=== PATIENT | female | born 1960 | race Caucasian/White ===

== ENCOUNTER 2019-03-28 10:23 | Emergency (ER) | payer MEDICAID ==
--- NOTE | 2019-03-28 10:29 | NUR ---
CALLED PT TO TRIAGE AND SHE STATED SHE HAD TO LEAVE BUT WILL BE BACK AT A LATER TIME.
== END 2019-03-28 10:29 | disposition left against medical advice (07) ==
LOC: MED 10:23
DX: F41.9 Anxiety disorder, unspecified (principal); Z53.21 Procedure and treatment not carried out due to patient leaving prior to being seen by health care provider

== ENCOUNTER 2019-03-28 10:43 | Emergency (ER) | payer MEDICAID ==
[~2019-03-28] VITALS: Ht 160 cm; Wt 44.0 kg
[2019-03-28 10:57] VITALS: BP 116/77
[2019-03-28] MEDS ORDERED: LORazepam 0.5 MG TAB PO ONE (11:20)
[2019-03-28] MEDS ORDERED: hydrOXYzine HCL 25 MG TAB PO ONE (11:30)
[2019-03-28 12:28] VITALS: BP 116/70
== END 2019-03-28 12:28 | disposition home or self-care (01) ==
LOC: MED 10:43
DX: F41.9 Anxiety disorder, unspecified (principal); F32.9 Major depressive disorder, single episode, unspecified
CPT/HCPCS: 99284

== ENCOUNTER 2020-05-06 12:56 | Emergency (ER) | payer MEDICAID ==
[~2020-05-06] VITALS: Ht 157.5 cm; Wt 49.9 kg
[2020-05-06 13:05] VITALS: BP 134/89
--- NOTE | 2020-05-06 13:51 | NUR ---
PATIENT AMBULATED TO ER BED 12
--- NOTE | 2020-05-06 13:55 | NUR ---
c/o anxiety----sudden onset of dizziness, weakness to knees x today pt admits she feels this way everyday---denies si/hi or visual/auditory hallucinations
--- NOTE | 2020-05-06 13:55 | NUR ---
Note marioone in EDM - 05/06/20 at 1444 by ADRIEL Patient discharged with v/s stable. Written and verbal after care instructions given and explained. Patient alert, oriented and verbalized understanding of instructions. Ambulatory with steady gait. All questions addressed prior to discharge. ID band removed. Patient advised to follow up with PMD. Rx of XANAX given. Patient educated on indication of medication including possible reaction and side effects. Opportunity to ask questions provided and answered.
[2020-05-06 14:44] VITALS: BP 129/84
== END 2020-05-06 14:44 | disposition home or self-care (01) ==
LOC: MED 12:56
DX: R42 Dizziness and giddiness (principal); F41.9 Anxiety disorder, unspecified; F32.9 Major depressive disorder, single episode, unspecified
CPT/HCPCS: 99283

== ENCOUNTER 2020-08-10 10:25 | Emergency (ER) | payer MEDICAID ==
[~2020-08-10] VITALS: Ht 160 cm; Wt 49.0 kg
[2020-08-10 10:42] VITALS: BP 115/61
--- NOTE | 2020-08-10 11:48 | NUR ---
PT TAKEN TO BED 8.
--- NOTE | 2020-08-10 12:15 | NUR ---
60 YO F C/O RECTAL BLEEDING X 2 DAYS. PT ALSO REPORTS LOWER ABDOMINAL CRAMPING /10. DENIES N/V/D. NO URINARY SYMPTOMS REPORTED. IN ED, VSS. AOX4. CLEAR BREATH SOUNDS. ABDOMEN SOFT NONTENDER, ACTIVE BOWEL SOUNDS ON ALL QUADRANTS. PT SITTING ON BED. ERMD MADE AWARE OF PT STATUS. PMH: DEPRESSION, ANXIETY, PANIC DO NKA
[2020-08-10 12:50] VITALS: BP 115/61
--- NOTE | 2020-08-10 12:50 | NUR ---
Patient discharged with v/s stable. Written and verbal after care instructions given and explained. Patient alert, oriented and verbalized understanding of instructions. Ambulatory with steady gait. All questions addressed prior to discharge. ID band removed. Patient advised to follow up with PMD. Rx of Hydrocortisone Acetate, Ranitidine given. Patient educated on indication of medication including possible reaction and side effects. Opportunity to ask questions provided and answered.
== END 2020-08-10 12:50 | disposition home or self-care (01) ==
LOC: MED 10:25
DX: K64.8 Other hemorrhoids (principal); F41.9 Anxiety disorder, unspecified; F32.9 Major depressive disorder, single episode, unspecified
CPT/HCPCS: 99282

== ENCOUNTER 2022-03-10 14:57 | Emergency (ER) | payer MEDICAID ==
[~2022-03-10] VITALS: Ht 160 cm; Wt 59.4 kg
[2022-03-10 15:22] VITALS: BP 118/73
[2022-03-10] MEDS ORDERED: FAMOTIDINE 20 MG TAB PO ONE (16:10)
[2022-03-10] MEDS ORDERED: DICYCLOMINE HCL LIQUID 20 MG, ALUMINUM HYD/MAG/SIMETHICONE 30 ML, LIDOCAINE VISCOUS 2% ... PO ONE ×3 (16:10)
[2022-03-10 16:39] LABS: BASOPHILS % (AUTO) 0.1 % (0.0-2.0); EOSINOPHILS % (AUTO) 0.2 % (0.0-4.0); LYMPHOCYTES # (AUTO) 1.7 K/uL (2.5-16.5); LYMPHOCYTES % (AUTO) 15.8 % (20.5-51.1); MEAN CORPUSCULAR HEMOGLOBIN 32 pg (27-31); MEAN CORPUSCULAR HGB CONC 33 g/dL (33-37); MEAN CORPUSCULAR VOLUME 95.7 fL (80-94); MONOCYTES # (AUTO) 1.9 K/uL (0.8-1.0); MONOCYTES % (AUTO) 17.5 % (1.7-9.3); NEUTROPHILS # (AUTO) 7.2 K/uL (1.8-7.7); NEUTROPHILS % (AUTO) 66.4 % (42.2-75.2); PLATELET COUNT (AUTO) 193 K/uL (140-450); RED BLOOD CELL COUNT(AUTO) 6.26 MIL/uL (4.20-5.40); RED CELL DISTRIBUTION WIDTH 13.8 % (11.6-13.7); WHITE BLOOD COUNT (AUTO) 10.9 K/uL (4.8-10.8)
[2022-03-10 17:07] LABS: ALBUMIN 3.4 g/dL (3.4-5.0); ANION GAP 14.2 (8-16); ASPARTATE AMINOTRANSFERASE 20 U/L (15-37); CARBON DIOXIDE 26.1 mmol/L (21-32); CHLORIDE 101 mmol/L (98-107); CREATININE 0.6 mg/dL (0.6-1.3); GFR ARICAN-AMERICAN 130 mL/min (>90); GLUCOSE 118 mg/dL (74-106); LIPASE 757 U/L (73-393); POTASSIUM 3.3 mmol/L (3.5-5.1); SODIUM SERUM 138 mmol/L (136-145); TOTAL BILIRUBIN 0.5 mg/dL (0.0-1.0); UREA NITROGEN, BLOOD 17 mg/dL (7-18)
[2022-03-10] MEDS ORDERED: ALUMINUM HYD/MAG/SIMETHICONE 30 ML UDC ONE (17:14)
[2022-03-10] MEDS ORDERED: FAMOTIDINE 20 MG TAB ONE (17:14)
[2022-03-10] MEDS ORDERED: DICYCLOMINE HCL LIQUID 10 MG/5 ML UDC ONE (17:16)
[2022-03-10] MEDS ORDERED: BEN10 PO (17:42)
[2022-03-10] MEDS ORDERED: ACET-8386 PO (17:42)
[2022-03-10] MEDS ORDERED: FAMO-92 PO (17:49)
[2022-03-10 18:14] VITALS: BP 118/73
--- NOTE | 2022-03-10 18:14 | NUR ---
Patient discharged with v/s stable. Written and verbal after care instructions given and explained. Patient alert, oriented and verbalized understanding of instructions. Ambulatory with steady gait. All questions addressed prior to discharge. ID band removed. Patient advised to follow up with PMD. Rx of HYDROCODON BENTYL PEPCID given. Patient educated on indication of medication including possible reaction and side effects. Opportunity to ask questions provided and answered.
== END 2022-03-10 18:14 | disposition home or self-care (01) ==
LOC: MED 14:57
DX: K85.90 Acute pancreatitis without necrosis or infection, unspecified (principal)
CPT/HCPCS: 36415; 80053; 83690; 84484; 85025; 93005; 99284